=== PATIENT | female | born 1985 | race Caucasian/White ===

== ENCOUNTER 2018-05-22 13:54 | Emergency (ER) | payer MEDICAID ==
[~2018-05-22] VITALS: Ht 160 cm; Wt 99.6 kg
[2018-05-22 14:38] VITALS: BP 102/62
== END 2018-05-22 15:16 | disposition home or self-care (01) ==
LOC: ED 14:52
DX: M54.16 Radiculopathy, lumbar region (principal); Z90.89 Acquired absence of other organs; Z87.891 Personal history of nicotine dependence
CPT/HCPCS: 99282